=== PATIENT | female | born 1965 | race Caucasian/White ===

== ENCOUNTER → 2020-09-12 08:04 | Outpatient (CLI) | payer OTHER | END | disposition home or self-care (01) | LOC: LAB 08:04 | PROVIDERS: ATTEND General Practice | DX: R05 Cough (principal); Z03.818 Encounter for observation for suspected exposure to other biological agents ruled out; R06.02 Shortness of breath ==

== ENCOUNTER → 2020-09-12 | Outpatient (CLI) | payer OTHER | END | disposition home or self-care (01) | LOC: ASH CLINIC 08:40 | DX: Z23 Encounter for immunization (principal); U07.1 COVID-19 ==